=== PATIENT | female | born 1990 | race African-American/Black ===

== ENCOUNTER 2016-07-18 20:40 | Emergency (ER) | payer OTHER ==
[2016-07-18] MEDS ORDERED: PROMETHAZINE 25 MG/ML VIAL ONE (21:41)
[2016-07-18] MEDS ORDERED: SODIUM CHLORIDE 0.9% 1,000 ML ONE (21:41)
[2016-07-18] MEDS ORDERED: KETOROLAC 30 MG/ML VIAL ONE (22:00)
== END 2016-07-18 23:33 | disposition left against medical advice (07) ==
LOC: ER 20:40
CPT/HCPCS: 36415 ×2; 80053 ×2; 81001 ×2; 83690 ×2; 84703 ×2; 85025 ×2; 96361 ×2; 96365 ×2; 96366 ×2; 96372 ×2; 96375 ×2; 99284; J1885; J2550